=== PATIENT | male | born 1970 | race Caucasian/White ===

== ENCOUNTER 2019-09-14 09:59 | Emergency (ER) | payer OTHER ==
[~2019-09-14] VITALS: Ht 182 cm; Wt 92.0 kg
--- NOTE | 2019-09-14 10:25 | ED GU-Male ---
General Chief Complaint: Male Reproductive Stated Complaint: KNOT ON SCROTUM Nursing Triage Note: STATES HE NOTICED A KNOT ON HIS TESTICLE SACK 4-5 DAYS AGO AND NOW IS HAVING PAIN AND SWELLING Source: patient Exam Limitations: no limitations History of Present Illness Date Seen by Provider: Sep 14, 2019 Time Seen by Provider: 10:06 Initial Comments Patient presents to ER by private conveyance with chief complaint that at the posterior portion of his scrotum he had a small nodule for about for 5 days now that now include swelling, drainage and pain throughout his scrotum. He is not having any painful urination fevers chills, history of diabetes or other medical problems. Does not take any medicines nor follow with a doctor. Allergies and Home Medications Allergies Coded Allergies: No Known Drug Allergies (Unverified , 09/14/19) Home Medications Hydrocodone/Acetaminophen 1 Each Tablet, 1 TAB PO Q6H PRN for PAIN-BREAKTHROUGH Prescribed by: HUGO TAVERAS on 09/14/19 1121 Sulfamethoxazole/Trimethoprim 1 Each Tablet, 1 EACH PO BID Prescribed by: HUGO TAVERAS on 09/14/19 1121 Patient Home Medication List Home Medication List Reviewed: Yes Review of Systems Review of Systems Constitutional: No chills, No diaphoresis EENTM: No ear discharge, No ear pain Respiratory: No cough, No short of breath Cardiovascular: No chest pain, No palpitations Gastrointestinal: No abdominal pain, No nausea Genitourinary: see HPI; denies discharge, denies dysuria Musculoskeletal: No back pain, No joint pain Skin: see HPI All Other Systemes Reviewed Negative Unless Noted: Yes Past Efjmvde-Fbjbbg-Yrnuhm Hx Patient Social History Alcohol Use: Denies Use Recreational Drug Use: No Smoking Status: Never a Smoker Recent Foreign Travel: No Contact w/Someone Who Travel: No Recent Infectious Disease Expo: No Physical Exam Vital Signs Vital Signs - First Documented 09/14/19 10:00 Temp 36.6 Pulse 106 Resp 16 B/P (MAP) 155/100 (118) Pulse Ox 95 O2 Delivery Room Air Capillary Refill : Less Than 3 Seconds Height, Weight, BMI Height: '" Weight: lbs. oz. kg; 27.00 BMI Method: General Appearance: WD/WN, no apparent distress HEENT: PERRL/EOMI, pharynx normal Neck: full range of motion, normal inspection Cardiovascular: normal peripheral pulses, regular rate, rhythm Respiratory: no respiratory distress, no accessory muscle use Gastrointestinal: non tender, soft Genital/Rectal: other (the pain is nontender with no discharge or ulcers. Scrotum is edematous, erythematous, warm, tender of the posterior raphe and the perineum. There is a indurated, pointed area with a small amount of purulent discharge approximately 3 x 5 cm.) Neurologic/Psychiatric: alert, normal mood/affect, oriented x 3 Skin: other (cellulitic scrotum with firm, indurated, fluctuant area consistent with an abscess in the perineum and posterior raphe of the scrotum.) Procedures/Interventions I&D : Site: posterior scrotal/perineum Blade Size: 11 I & D Procedure: betadine prep (chlorhexidine and sterile saline), Wound Packing (quarter inch iodoform gauze) Progress Patient's skin was cleaned thoroughly using chlorhexidine and sterile saline followed by being doused in Betadine. 2 cc of 1% lidocaine without epinephrine were used to anesthetize the skin. A cross delgadillo incision was made using the 11 blade scalpel approximately 1 cm x 1 cm and were trimmed off. The wound culture probe was inserted and removed. The sterile cotton Applicator was used to break up any loculations and using direct pressure we expressed approximately 10 cc of purulent material. We then packed about 10 cm of iodoform gauze. Patient tolerated procedure well. Progress/Results/Core Measures Suspected Sepsis Recent Fever Within 48 Hours: No Infection Criteria Present: Suspected New Infection New/Unexplained Altered Menta: No Sepsis Screen: No Definite Risk SIRS Temperature: Pulse: 106 Respiratory Rate: 16 Laboratory Tests 09/14/19 10:40: White Blood Count 10.3 Blood Pressure 155 /100 Mean: 118 Laboratory Tests 09/14/19 10:40: Creatinine 0.95, Platelet Count 181, Total Bilirubin 1.1H Results/Orders Lab Results Laboratory Tests Test 09/14/19 10:40 Range/Units White Blood Count 10.3 4.3-11.0 10^3/uL Red Blood Count 4.79 4.35-5.85 10^6/uL Hemoglobin 15.1 13.3-17.7 G/DL Hematocrit 42 40-54 % Mean Corpuscular Volume 89 80-99 FL Mean Corpuscular Hemoglobin 32 25-34 PG Mean Corpuscular Hemoglobin Concent 36 32-36 G/DL Red Cell Distribution Width 13.2 10.0-14.5 % Platelet Count 181 130-400 10^3/uL Mean Platelet Volume 10.6 H 7.4-10.4 FL Neutrophils (%) (Auto) 78 H 42-75 % Lymphocytes (%) (Auto) 10 L 12-44 % Monocytes (%) (Auto) 9 0-12 % Eosinophils (%) (Auto) 2 0-10 % Basophils (%) (Auto) 0 0-10 % Neutrophils # (Auto) 8.1 H 1.8-7.8 X 10^3 Lymphocytes # (Auto) 1.0 1.0-4.0 X 10^3 Monocytes # (Auto) 1.0 0.0-1.0 X 10^3 Eosinophils # (Auto) 0.2 0.0-0.3 10^3/uL Basophils # (Auto) 0.0 0.0-0.1 10^3/uL Sodium Level 139 135-145 MMOL/L Potassium Level 3.4 L 3.6-5.0 MMOL/L Chloride Level 103 98-107 MMOL/L Carbon Dioxide Level 26 21-32 MMOL/L Anion Gap 10 5-14 MMOL/L Blood Urea Nitrogen 8 7-18 MG/DL Creatinine 0.95 0.60-1.30 MG/DL Estimat Glomerular Filtration Rate > 60 BUN/Creatinine Ratio 8 Glucose Level 142 H 70-105 MG/DL Calcium Level 8.6 8.5-10.1 MG/DL Corrected Calcium 8.5 8.5-10.1 MG/DL Total Bilirubin 1.1 H 0.1-1.0 MG/DL Aspartate Amino Transf (AST/SGOT) 15 5-34 U/L Alanine Aminotransferase (ALT/SGPT) 17 0-55 U/L Alkaline Phosphatase 88 40-136 U/L Total Protein 6.9 6.4-8.2 GM/DL Albumin 4.1 3.2-4.5 GM/DL My Orders Orders - HUGO TAVERAS Cbc With Automated Diff (09/14/19 10:30) Comprehensive Metabolic Panel (09/14/19 10:30) Blood Culture (09/14/19 10:30) Urinalysis (09/14/19 10:30) Urine Culture (09/14/19 10:30) Ed Iv/Invasive Line Start (09/14/19 10:30) Ns Iv 1000 Ml (Sodium Chloride 0.9%) (09/14/19 10:30) Ceftriaxone For Iv Use (Rocephin For I (09/14/19 10:30) Wound Culture (09/14/19 10:30) Ketorolac Injection (Toradol Injection) (09/14/19 10:45) Lidocaine 1% Inj 20 Ml (Xylocaine 1% Inj (09/14/19 10:45) Medications Given in ED Current Medications Medications Dose Ordered Sig/Gato Route Start Time Stop Time Status Last Admin Dose Admin Ceftriaxone Sodium 1000 mg/ Sterile Water 10 ml @ 200 mls/hr ONCE ONCE IV 09/14/19 10:30 09/14/19 10:35 DC 09/14/19 11:12 200 MLS/HR Ketorolac Tromethamine 30 mg ONCE ONCE IVP 09/14/19 10:45 09/14/19 10:46 DC 09/14/19 10:49 30 MG Lidocaine HCl 20 ml ONCE ONCE INJ 09/14/19 10:45 09/14/19 10:46 DC 09/14/19 10:49 20 ML Vital Signs/I&O 09/14/19 10:00 Temp 36.6 Pulse 106 Resp 16 B/P (MAP) 155/100 (118) Pulse Ox 95 O2 Delivery Room Air Capillary Refill : Less Than 3 Seconds Blood Pressure Mean: 118 Progress Note : Time: 11:17 Progress Note Because of his tachycardia and extensiveness of the cellulitis involving a s crotum we elected to get some labs including blood culture, wound culture, urinalysis and urine culture. At this time the patient's white count is 10,000 with a left shift but he does not meet sepsis criteria. Her plan would be then to after draining the wound and packing it give him a shot of Rocephin and put him on Bactrim outpatient and have him follow-up sometime tomorrow afternoon or Saturday morning to have the wound repacked and a second dose of Rocephin if necessary. Patient is in agreement with this plan. Toradol for pain. Departure Impression Primary Impression: Scrotal wall abscess Additional Impression: Cellulitis of scrotum Disposition: HOME, SELF-CARE Condition: Stable Departure-Patient Inst. Decision time for Depature: 11:18 Patient Instructions: Skin Abscess, Cellulitis (Skin Infection), Adult (DC) Add. Discharge Instructions: Keep the wound clean and dry regular soap and water. Be careful not to dislodge the packing however if you do it does not need to be replaced immediately. banquet set up person the Bactrim and take one tablet twice a day for the next 7 days. Plan to return to the ER 09/15/19 in the afternoon or morning of 09/16/19 for wound reevaluation, repeat packing and potential a second dose of parenteral antibiotics. If you have pain uncontrolled by Tylenol and ibuprofen as well as warm com presses then you may take one tablet of hydrocodone every 6 hours as needed. Hydrocodone will cause constipation and should be taken with MiraLAX or some other stool softener/laxative. Stay active around the house but no working in a dirty environment for the rest of the week. All discharge instructions reviewed with patient and/or family. Voiced understanding. Scripts Hydrocodone/Acetaminophen (Hydrocodone/Acetaminophen 5 MG/325 MG TAB) 1 Each Tablet 1 TAB PO Q6H PRN for PAIN-BREAKTHROUGH MDD 10 TABS, #14 TAB 0 Refills Prov: HUGO TAVERAS 09/14/19 Sulfamethoxazole/Trimethoprim (Bactrim Ds Tablet) 1 Each Tablet 1 EACH PO BID for 7 Days, #14 TAB 0 Refills Prov: HUGO TAVERAS 09/14/19 Work/School Note: Work Release Form Date Seen in the Emergency Department: Sep 14, 2019 Return to Work: Sep 21, 2019 Restrictions: No Restrictions HUGO TAVERAS Sep 14, 2019 10:25
[2019-09-14] MEDS ORDERED: NS IV 1000 ML 1,000 ML IV SCH (10:30)
[2019-09-14] MEDS ORDERED: cefTRIAXone FOR IV USE 1,000 MG in WATER (STERILE) FOR INJECTION 10 ML IV ONE (10:30)
[2019-09-14] MEDS ORDERED: LIDOCAINE 1% INJ 20 ML 20 ML VIAL INJ ONE (10:45)
[2019-09-14] MEDS ORDERED: KETOROLAC 30 MG/ML VIAL IVP ONE (10:45)
[2019-09-14 10:51] LABS: BASOPHILS % (AUTO) 0 % (0-10); EOSINOPHILS # (AUTO) 0.2 10^3/uL (0.0-0.3); EOSINOPHILS % (AUTO) 2 % (0-10); HEMATOCRIT 42 % (40-54); HEMOGLOBIN 15.1 G/DL (13.3-17.7); LYMPHOCYTES % (AUTO) 10 % (12-44); MEAN CORPUSCULAR HEMOGLOBIN 32 PG (25-34); MEAN CORPUSCULAR HGB CONC 36 G/DL (32-36); MEAN CORPUSCULAR VOLUME 89 FL (80-99); MEAN PLATELET VOLUME 10.6 FL (7.4-10.4); MONOCYTES % (AUTO) 9 % (0-12); NEUTROPHILS # (AUTO) 8.1 X 10^3 (1.8-7.8); NEUTROPHILS % (AUTO) 78 % (42-75); PLATELET COUNT 181 10^3/uL (130-400); RED CELL DISTRIBUTION WIDTH 13.2 % (10.0-14.5); WHITE BLOOD COUNT 10.3 10^3/uL (4.3-11.0)
--- NOTE | 2019-09-14 10:53 | NUR ---
LAB IN ROOM DRAWING AT THIS TIME.
--- OUTSIDE RECORDS SUMMARY | 2019-09-14 11:06 | XMS REPORT | Continuity of Care Document ---
Author Organization Unknown Address Unknown Phone Unavailable Allergies There is no data. Medications There is no data. Problems There is no data. Procedures There is no data. Results There is no data. Encounters ACCT No. Visit Date/Time Discharge Status Pt. Type Provider Facility Loc./Unit Complaint [id number] 01/05/2019 10:00:00 01/05/2019 23:59:5 9 CLS Outpatient VANITA PUCKETT [facility]
[2019-09-14 11:18] LABS: ALANINE AMINOTRANSFERASE 17 U/L (0-55); ALBUMIN 4.1 GM/DL (3.2-4.5); ALKALINE PHOSPHATASE 88 U/L (40-136); BILIRUBIN,TOTAL 1.1 MG/DL (0.1-1.0); BUN/CREATININE RATIO 8; CALCIUM 8.6 MG/DL (8.5-10.1); CARBON DIOXIDE 26 MMOL/L (21-32); CHLORIDE 103 MMOL/L (98-107); CREATININE SERUM 0.95 MG/DL (0.60-1.30); GFR ESTIMATED > 60; GLUCOSE 142 MG/DL (70-105); POTASSIUM 3.4 MMOL/L (3.6-5.0); SODIUM 139 MMOL/L (135-145); TOTAL PROTEIN 6.9 GM/DL (6.4-8.2)
[2019-09-14] MEDS ORDERED: SULF1TAB35 PO (11:21)
[2019-09-14] MEDS ORDERED: HYDR-4226 PO (11:21)
[2019-09-14 11:36] VITALS: BP 136/99
== END 2019-09-14 11:36 | disposition home or self-care (01) ==
LOC: EDUNIT# 09:59 → ER 10:01
DX: N49.2 Inflammatory disorders of scrotum (principal)
CPT/HCPCS: 10061; 36415; 80053; 85025; 87040; 87070; 87077; 87186; 87205

== ENCOUNTER 2019-12-10 19:30 | Emergency (ER) | payer OTHER ==
[~2019-12-10] VITALS: Ht 183 cm; Wt 90.9 kg
[~2019-12-10 19:30] MED LIST: HYDR-4226 PO; SULF1TAB35 PO
[2019-12-10] MEDS ORDERED: TETANUS,DIPTH,PERTUSS P/F (BOOSTRIX) 0.5 ML VIAL IM ONE (20:15)
[2019-12-10] MEDS ORDERED: LIDOCAINE 1% INJ 20 ML 20 ML VIAL INJ ONE (20:15)
--- NOTE | 2019-12-10 20:17 | Diagnostic Imaging Report ---
INDICATION: Laceration to the left thumb 3 views of the left thumb shows no fracture, dislocation or other acute bony abnormality. There is soft tissue injury near the interphalangeal joint with no foreign body seen. IMPRESSION: Soft tissue injury. No bony abnormality or foreign body is seen. Dictated by: Dictated on workstation # [id number]
[2019-12-10] MEDS ORDERED: RX-TRIMETH/SULFA. 160-800 MG (BACTRIM DS) TAB PPK#2 PO STA (20:24)
[2019-12-10] MEDS ORDERED: SULF1TAB35 PO (20:24)
--- NOTE | 2019-12-10 20:24 | ED Upper Extremity ---
General Chief Complaint: Laceration Stated Complaint: LACERATION AT WORK Nursing Triage Note: laceration to left thumb while moving boxes at work. Nursing Sepsis Screen: No Definite Risk Source: patient History of Present Illness Date Seen by Provider: Dec 10, 2019 Time Seen by Provider: 20:00 Initial Comments PT ARRIVES VIA POV FROM WORK AT [employer] PT STATES HE WAS MOVING BOXES AND HIS FINGER GOT CAUGHT ON A METAL POLE, BENT HIS LEFT THUMB BACK AND CUT HIS THUMB. OCCURRED AT 1900 TONIGHT NO PARESTHESIAS OR MOTOR DEFICITS NO PRIOR INJURY TO THIS THUMB NO OTHER INJURIES FROM THE INCIDENT PT IS RIGHT HANDED LAST TETANUS IS UNKNOWN. PCP: NONE Allergies and Home Medications Allergies Coded Allergies: No Known Drug Allergies (Unverified , 09/14/19) Home Medications Sulfamethoxazole/Trimethoprim 1 Each Tablet, 1 EACH PO BID Prescribed by: LUCILLE RUDD on 12/10/192023 Patient Home Medication List Home Medication List Reviewed: Yes Review of Systems Constitutional: no symptoms reported Musculoskeletal: see HPI Skin: see HPI Psychiatric/Neurological: No Symptoms Reported Past Idsksdr-Pfmvqy-Idotmd Hx Past Med/Social Hx: Reviewed and Corrections made Patient Social History Alcohol Use: Denies Use Recreational Drug Use: No Smoking Status: Never a Smoker 2nd Hand Smoke Exposure: No Recent Foreign Travel: No Contact w/Someone Who Travel: No Recent Infectious Disease Expo: No Recent Hopitalizations: No Physical Abuse: No Sexual Abuse: No Mistreated: No Fear: No Immunizations Up To Date Tetanus Booster (TDap): Unknown Seasonal Allergies Seasonal Allergies: No Past Medical History Surgeries: Yes (ABSCESS IN GENTIAL AREA I&D'D) Respiratory: No Cardiac: No Neurological: No Genitourinary: No Gastrointestinal: No Musculoskeletal: No Endocrine: No HEENT: No Cancer: No Psychosocial: No Integumentary: Yes (ABSCESS GENITAL AREA) Blood Disorders: No Physical Exam Vital Signs Vital Signs - First Documented 12/10/19 19:47 Temp 36.6 Pulse 103 Resp 18 B/P (MAP) 140/102 (115) Pulse Ox 96 O2 Delivery Room Air Capillary Refill : Less Than 3 Seconds Height, Weight, BMI Height: '" Weight: lbs. oz. kg; 27.00 BMI Method: General Appearance: WD/WN, no apparent distress Hand: Left (LEFT THUMB WITH 4 CM C-SHAPED FLAP LACERATION. PROXIMAL MEDIAL ASPECT OF THUMB. MOTOR/SENSORY/VASCULAR INTACT. ) Procedures/Interventions Other Wound Location LEFT THUMB Wound Length (cm): 4 Wound's Depth, Shape: flap Wound Explored: clean Betadine Prep?: No (BETASEPT) Anesthesia: 1% Lidocaine Suture: Ethlion Suture Size: 4-0 Number of Sutures: 5 Layer Closure?: 1 Sterile Dressing Applied?: Yes (AND THUMB SPICA SPLINT) Splinting and Joint Reduction : Splints: Thumb/Wrist Spica Progress/Results/Core Measures Results/Orders My Orders Orders - LUCILLE RUDD DO Dipht,Pertuss(Acell),Tet Adult (Boostrix (12/10/19 20:15) Finger(S) (12/10/19 20:04) Lidocaine 1% Inj 20 Ml (Xylocaine 1% Inj (12/10/19 20:15) Wound Dressing-Ed (12/10/19 20:21) Thumb Spika (12/10/19 20:21) Rx-Trimeth/Sulfameth Ds Tab (Rx-Bactrim/ (12/10/19 20:24) Medications Given in ED Current Medications Medications Dose Ordered Sig/Gato Route Start Time Stop Time Status Last Admin Dose Admin Diphtheria/ Tetanus/Acell Pertussis 0.5 ml ONCE ONCE IM 12/10/19 20:15 12/10/19 20:16 DC 12/10/19 20:18 0.5 ML Lidocaine HCl 20 ml ONCE ONCE INJ 12/10/19 20:15 12/10/19 20:16 DC 12/10/19 20:18 20 ML Vital Signs/I&O 12/10/19 12/10/19 19:47 21:00 Temp 36.6 36.5 Pulse 103 87 Resp 18 18 B/P (MAP) 140/102 (115) 136/95 (115) Pulse Ox 96 99 O2 Delivery Room Air Blood Pressure Mean: 115 Diagnostic Imaging Comments XRAYS LEFT THUMB--SOFT TISSUE INJURY, NO BONY ABNORMALITY, PER RADIOLOGIST REPORT AT 2019 Reviewed: Reviewed by Me Departure Impression Primary Impression: Laceration of left thumb Additional Impression: Bsbvqzpfkm-vjlsguosv-giyuqfb (DPT) vaccination administered at current visit Disposition: 01 HOME, SELF-CARE Condition: Stable Departure-Patient Inst. Referrals: NO,LOCAL PHYSICIAN (PCP/Family) Primary Care Physician Patient Instructions: Diphtheria and Tetanus Toxoids, and Acellular Pertussis Vaccine, Laceration Repair With Stitches (DC), SPLINT CARE Add. Discharge Instructions: LEAVE DRESSING IN PLACE FOR 24 HOURS, THEN BEGIN CLEANING TWICE A DAY WITH ANTIBACTERIAL SOAP AND WATER ON A Q-TIP, THEN APPLY FRESH DRESSING. OTHERWISE KEEP CLEAN AND DRY WEAR SPLINT AT ALL TIMES TYLENOL AND MOTRIN NEEDED FOR PAIN FOLLOW UP WITH [facility] TOMORROW FOR FURTHER CARE SUTURES OUT IN 10 DAYS NO WORK UNTIL CLEARED BY [facility] All discharge instructions reviewed with patient and/or family. Voiced u nderstanding. Scripts Sulfamethoxazole/Trimethoprim (Bactrim Ds Tablet) 1 Each Tablet 1 EACH PO BID, #20 TAB Prov: LUCILLE RUDD DO 12/10/19 LUCILLE RUDD DO Dec 10, 2019 20:24
[2019-12-10 21:00] VITALS: BP 136/95
--- OUTSIDE RECORDS SUMMARY | 2019-12-10 23:10 | XMS REPORT | Continuity of Care Document ---
Author Organization Unknown Address Unknown Phone Unavailable Allergies Active Description Code Type Severity Reaction Onset Reported/Identified Relationship to Patient Clinical Status Yes No Known Drug Allergies [id number] Drug Allergy Unknown N/A 09/14/2019 Medications There is no data. Problems Date Dx Coded Attending Type Code Diagnosis Diagnosed By 09/14/2019 DARCY SPANN, HUGO Veras Ot N45. 4 ABSCESS OF EPIDIDYMIS OR TESTIS 09/14/2019 DARCY SPANN, HUGO Veras Ot N49. 2 INFLAMMATORY DISORDERS OF SCROTUM 09/16/2019 HUGO TAVERAS MD Ot N45. 4 ABSCESS OF EPIDIDYMIS OR TESTIS 09/16/2019 HUGO TAVERAS MD Ot N49. 2 INFLAMMATORY DISORDERS OF SCROTUM Procedures There is no data. Results Test Result Range Bacterial blood culture - 09/14/19 10:40 Bacterial blood culture NG NRG Bacterial blood culture - 09/14/19 10:53 Bacterial blood culture NG NRG Gram stain microscopy - 09/14/19 10:59 Gram stain microscopy Few gram positive cocci in c lusters NRG Bacteria identification in wound by cult ure - 09/14/19 10:59 Bacteria identification in wound by culture [id number] NRG QUANTITY OF GROWTH Moderate Growth NRG FREE TEXT ENTRY 2 RML CONFIRMED MRSA 09/15 08:20 NRG SUSCEPTIBILITY SUSCEPTIBILITY REPORTED 09/15 09:25 NRG MRSA SCREEN PRESUMPTIVE MRSA; SCREEN AT [facility] 09/14 NRG RAPID ID PRELIM RAPID ID TEST AT [facility] 09/14 07:40 NRG Dirithromycin susceptibility test by dis k diffusion - 09/14/19 10:59 Oxacillin susceptibility test by minimum inhibitory co ncentration > NRG Clindamycin susceptibility test by minimum inhibitory concentration <= NRG Erythromycin susceptibility test by minimum inhibitory concentration <= NRG Trimethoprim/sulfamethoxazole susceptibi lity test by minimum inhibitoryconcentration <= NRG Vancomycin susceptibility test by minimum inhibitory c oncentration 1 NRG Levofloxacin susceptibility test by minimum inhibitory concentration > NRG Rifampin susceptibility test by minimum inhibitory con centration <= NRG Cefazolin susceptibility test by minimum inhibitory co ncentration > NRG Linezolid susceptibility test by minimum inhibitory co ncentration 2 NRG Penicillin G susceptibility test by minimum inhibitory concentration > NRG Moxifloxacin susceptibility test by minimum inhibitory concentration 2 NRG Minocycline susc RIA <= NRG Encounters ACCT No. Visit Date/Time Discharge Status Pt. Type Provider Facility Loc./Unit Complaint [id number] 01/05/2019 10:00:00 01/05/2019 23:59:5 9 [facility] [id number] 09/14/2019 10:01:00 020 11:36:00 DIS Emergency DARCY SPANN, HUGO [facility] ER KNOT ON SCROTUM
== END 2019-12-10 20:59 | disposition home or self-care (01) ==
LOC: EDUNIT# 19:30 → ER 19:31
DX: S61.012A Laceration without foreign body of left thumb without damage to nail, initial encounter (principal); Z23 Encounter for immunization; W23.1XXA Caught, crushed, jammed, or pinched between stationary objects, initial encounter; Y92.59 Other trade areas as the place of occurrence of the external cause; Y99.0 Civilian activity done for income or pay
CPT/HCPCS: 12002; 73140; 90715

== ENCOUNTER 2019-12-21 11:47 | Emergency (ER) | payer OTHER ==
[~2019-12-21] VITALS: Ht 172.2 cm; Wt 90.9 kg
[2019-12-21 12:04] VITALS: BP 140/100
--- NOTE | 2019-12-21 12:04 | NUR ---
SUTURE REMOVED WITHOUT PROBLEM X6 SUTURES REMOVED.
--- OUTSIDE RECORDS SUMMARY | 2019-12-21 12:49 | XMS REPORT | Continuity of Care Document ---
Author Organization Unknown Address Unknown Phone Unavailable Allergies Active Description Code Type Severity Reaction Onset Reported/Identified Relationship to Patient Clinical Status Yes No Known Drug Allergies [id number] Drug Allergy Unknown N/A 09/14/2019 Medications There is no data. Problems Date Dx Coded Attending Type Code Diagnosis Diagnosed By 09/14/2019 HUGO TAVERAS MD Ot N45. 4 ABSCESS OF EPIDIDYMIS OR TESTIS 09/14/2019 HUGO TAVERAS MD Ot N49. 2 INFLAMMATORY DISORDERS OF SCROTUM 09/16/2019 HUGO TAVERAS MD Ot N45. 4 ABSCESS OF EPIDIDYMIS OR TESTIS 09/16/2019 HUGO TAVERAS MD Ot N49. 2 INFLAMMATORY DISORDERS OF SCROTUM 12/14/2019 TOBIN DO, LUCILLE K Ot M79.645 PAIN IN LEFT FINGER(S) 12/14/2019 TOBIN DO, LUCILLE K Ot S61.012 A LACERATION W/O FB OF LEFT THUMB W/O LARISSA 12/14/2019 TOBIN DO LUCILLE K Ot W23.1XX A CAUGHT, CRUSH, JAMMED, OR PINCHED BETW S 12/14/2019 TOBIN DO, LUCILLE K Ot Y92.[address] 12/14/2019 TOBIN DO, LUCILLE K Ot Y99.0 CIVILIAN ACTIVITY DONE FOR INCOME OR PAY 12/14/2019 TOBIN DO LUCILLE K Ot Z23 ENCOUNTER FOR IMMUNIZATION Procedures There is no data. Results Test [...] 10:59 Bacteria identification in wound by culture [id number] NRG QUANTITY OF GROWTH Moderate Growth NRG FREE TEXT ENTRY 2 RML CONFIRMED MRSA 09/15 08:20 NRG SUSCEPTIBILITY SUSCEPTIBILITY REPORTED 09/15 09:25 NRG MRSA SCREEN PRESUMPTIVE MRSA; SCREEN AT [facility] 09/14 NRG RAPID ID PRELIM RAPID ID TEST AT [facility] 09/14 07:40 NRG Dirithromycin susceptibility test by [...] Status Pt. Type Provider Facility Loc./Unit Complaint [id number] 01/05/2019 10:00:00 01/05/2019 23:59:5 9 CLS Outpatient VANITA PUCKETT [facility] [id number] 12/10/2019 19:31:00 20:59:00 DIS Outpatient LUCILLE RUDD DO [facility] ER LACERATION AT WORK [id number] 09/14/2019 10:01:00 11:36:00 DIS Emergency DARCY SPANN, HUGO [facility] ER KNOT ON SCROTUM
== END 2019-12-21 12:04 | disposition home or self-care (01) ==
LOC: EDUNIT# 11:47 → ER 11:48
DX: S61.012D Laceration without foreign body of left thumb without damage to nail, subsequent encounter (principal); X58.XXXD Exposure to other specified factors, subsequent encounter

== ENCOUNTER 2021-01-09 15:42 | Emergency (ER) | payer OTHER ==
[~2021-01-09] VITALS: Ht 182.8 cm; Wt 90.9 kg
[~2021-01-09 15:42] MED LIST changes: -SULF1TAB35 PO; +SULF1TAB38 PO
[2021-01-09 16:18] VITALS: BP 138/104
--- NOTE | 2021-01-09 16:34 | ED Lower Extremity ---
General Chief Complaint: Lower Extremity Stated Complaint: L LEG SWELLING Source: patient Exam Limitations: no limitations History of Present Illness Date Seen by Provider: Jan 09, 2021 Time Seen by Provider: 16:33 Initial Comments To ER with left lower extremity swelling. He has some pain behind the left knee. No history of DVT. No injury. No fevers or chills. Onset: yesterday Severity: moderate Pain/Injury Location: left ankle Method of Injury: unknown Modifying Factors: Improves With Movement Allergies and Home Medications Allergies Coded Allergies: No Known Drug Allergies (Unverified , 09/14/19) Home Medications Hydrocodone/Acetaminophen 1 Each Tablet, 1 TAB PO Q4H PRN for PAIN-MODERATE (5- 7) Prescribed by: LELAND MCKEON on 01/09/211713 Prednisone 20 Mg Tab, 40 MG PO DAILY Prescribed by: LELAND MCKEON on 01/09/211712 Sulfamethoxazole/Trimethoprim 1 Each Tablet, 1 EACH PO BID Prescribed by: LUCILLE RUDD on 12/10/192023 Patient Home Medication List Home Medication List Reviewed: Yes Review of Systems Constitutional: see HPI EENTM: see HPI Respiratory: no symptoms reported Cardiovascular: no symptoms reported Genitourinary: no symptoms reported Musculoskeletal: see HPI Skin: no symptoms reported Psychiatric/Neurological: No Symptoms Reported Past Mdfyeir-Tdzdbi-Neuwjm Hx Patient Social History Tobacco Use?: No Use of E-Cig and/or Vaping dev: No Substance use?: No Alcohol Use?: No Pt feels they are or have been: No Immunizations Up To Date Tetanus Booster (TDap): Unknown Influenza Vaccine Up-to-Date: No; Not Current Seasonal Allergies Seasonal Allergies: No Past Medical History Surgeries: Yes (ABSCESS IN GENTIAL AREA I&D'D) Respiratory: No Cardiac: No Neurological: No Genitourinary: No Gastrointestinal: No Musculoskeletal: No Endocrine: No HEENT: No Cancer: No Psychosocial: No Integumentary: Yes (ABSCESS GENITAL AREA) Blood Disorders: No Physical Exam Vital Signs Vital Signs - First Documented 01/09/21 16:18 Temp 36.4 Pulse 98 Resp 18 B/P (MAP) 138/104 (115) Pulse Ox 97 O2 Delivery Room Air Capillary Refill : Height, Weight, BMI Height: '" Weight: lbs. oz. kg; 27.00 BMI Method: General Appearance: WD/WN, no apparent distress HEENT: PERRL/EOMI, normal ENT inspection Respiratory: no respiratory distress, no accessory muscle use Hips: bilateral hip non-tender, bilateral hip normal inspection, bilateral hip normal range of motion Legs: left leg other (Some trace pitting edema left lower extremity. No fevers or chills.) Knees: bilateral knee non-tender, bilateral knee normal inspection, bilateral knee normal range of motion Ankles: bilateral ankle non-tender, bilateral ankle normal inspection, b ilateral ankle normal range of motion Feet: bilateral foot non-tender, bilateral foot normal inspection, bilateral foot normal range of motion Neurologic/Psychiatric: alert, normal mood/affect, oriented x 3 Skin: normal color, warm/dry Procedures/Interventions Suture Size: 4-0 Progress/Results/Core Measures Results/Orders Lab Results Laboratory Tests Test 01/09/21 16:42 Range/Units White Blood Count 6.3 4.3-11.0 10^3/uL Red Blood Count 5.14 4.30-5.52 10^6/uL Hemoglobin 16.0 13.3-17.7 g/dL Hematocrit 45 40-54 % Mean Corpuscular Volume 88 80-99 fL Mean Corpuscular Hemoglobin 31 25-34 pg Mean Corpuscular Hemoglobin Concent 35 32-36 g/dL Red Cell Distribution Width 12.8 10.0-14.5 % Platelet Count 201 130-400 10^3/uL Mean Platelet Volume 10.4 9.0-12.2 fL Immature Granulocyte % (Auto) 0 % Neutrophils (%) (Auto) 66 42-75 % Lymphocytes (%) (Auto) 19 12-44 % Monocytes (%) (Auto) 11 0-12 % Eosinophils (%) (Auto) 3 0-10 % Basophils (%) (Auto) 1 0-10 % Neutrophils # (Auto) 4.2 1.8-7.8 X 10^3 Lymphocytes # (Auto) 1.2 1.0-4.0 X 10^3 Monocytes # (Auto) 0.7 0.0-1.0 X 10^3 Eosinophils # (Auto) 0.2 0.0-0.3 10^3/uL Basophils # (Auto) 0.1 0.0-0.1 10^3/uL Immature Granulocyte # (Auto) 0.0 0.0-0.1 10^3/uL D-Dimer 0.34 0.00-0.49 UG/ML Sodium Level 140 135-145 MMOL/L Potassium Level 4.0 3.6-5.0 MMOL/L Chloride Level 106 98-107 MMOL/L Carbon Dioxide Level 24 21-32 MMOL/L Anion Gap 10 5-14 MMOL/L Blood Urea Nitrogen 9 7-18 MG/DL Creatinine 0.92 0.60-1.30 MG/DL Estimat Glomerular Filtration Rate > 60 BUN/Creatinine Ratio 10 Glucose Level 97 70-105 MG/DL Calcium Level 8.7 8.5-10.1 MG/DL My Orders Orders - LELAND MCKEON APRN Cbc With Automated Diff (01/09/21 16:32) Basic Metabolic Panel (01/09/21 16:32) Fibrin Degradation Products (01/09/21 16:32) Vital Signs/I&O 01/09/21 16:18 Temp 36.4 Pulse 98 Resp 18 B/P (MAP) 138/104 (115) Pulse Ox 97 O2 Delivery Room Air Departure Impression Primary Impression: Left leg pain Disposition: HOME, SELF-CARE Condition: Stable Departure-Patient Inst. Decision time for Depature: 17:12 Referrals: NO,LOCAL PHYSICIAN (PCP/Family) Primary Care Physician Patient Instructions: NO INSTRUCTIONS GIVEN Add. Discharge Instructions: 1. REturn to ER for any concerns 2. Steroids and pain medication as directed 3. Follow up with your doctor this week for recheck All discharge instructions reviewed with patient and/or family. Voiced understanding. Scripts Hydrocodone/Acetaminophen (Hydrocodone-Acetamin 5-325 mg) 1 Each Tablet 1 TAB PO Q4H PRN for PAIN-MODERATE (5-7), #10 TAB Prov: LELAND MCKEON APRN 01/09/21 Prednisone (Prednisone) 20 Mg Tab 40 MG PO DAILY, #8 TAB 0 Refills Prov: LELAND MCKEON APRN 01/09/21 LELAND MCKEON APRN Jan 09, 2021 16:34
[2021-01-09 16:59] LABS: CHLORIDE 106 MMOL/L (98-107); SODIUM 140 MMOL/L (135-145)
[2021-01-09 17:00] LABS: CALCIUM 8.7 MG/DL (8.5-10.1); GLUCOSE 97 MG/DL (70-105)
[2021-01-09 17:02] LABS: BASOPHILS # (AUTO) 0.1 10^3/uL (0.0-0.1); BASOPHILS % (AUTO) 1 % (0-10); CARBON DIOXIDE 24 MMOL/L (21-32); EOSINOPHILS # (AUTO) 0.2 10^3/uL (0.0-0.3); EOSINOPHILS % (AUTO) 3 % (0-10); HEMATOCRIT 45 % (40-54); LYMPHOCYTES # (AUTO) 1.2 X 10^3 (1.0-4.0); LYMPHOCYTES % (AUTO) 19 % (12-44); MEAN CORPUSCULAR HEMOGLOBIN 31 pg (25-34); MEAN CORPUSCULAR HGB CONC 35 g/dL (32-36); MEAN CORPUSCULAR VOLUME 88 fL (80-99); MEAN PLATELET VOLUME 10.4 fL (9.0-12.2); MONOCYTES # (AUTO) 0.7 X 10^3 (0.0-1.0); MONOCYTES % (AUTO) 11 % (0-12); NEUTROPHILS # (AUTO) 4.2 X 10^3 (1.8-7.8); NEUTROPHILS % (AUTO) 66 % (42-75); PLATELET COUNT 201 10^3/uL (130-400); WHITE BLOOD COUNT 6.3 10^3/uL (4.3-11.0)
[2021-01-09 17:04] LABS: CREATININE SERUM 0.92 MG/DL (0.60-1.30); GFR ESTIMATED > 60
[2021-01-09 17:05] LABS: BUN/CREATININE RATIO 10
[2021-01-09] MEDS ORDERED: PRD20T PO (17:13)
[2021-01-09] MEDS ORDERED: ACHD5005 PO (17:13)
== END 2021-01-09 17:28 | disposition home or self-care (01) ==
LOC: EDUNIT# 15:42 → ER 15:44
DX: M79.605 Pain in left leg (principal)
CPT/HCPCS: 36415; 80048; 85025; 85379

== ENCOUNTER 2021-08-06 19:12 | Emergency (ER) | payer OTHER ==
[~2021-08-06] VITALS: Ht 182.9 cm; Wt 90.9 kg
[~2021-08-06 19:12] MED LIST changes: +ACHD5005 PO; +PRD20T PO
[2021-08-06] MEDS ORDERED: LACTATED RINGERS 1,000 ML IV STA ×2 (19:35→21:03)
[2021-08-06 19:43] LABS: CLARITY,URINE CLEAR; COLOR,URINE YELLOW; GLUCOSE, URINE (UA) NEGATIVE (NEGATIVE); KETONES,URINE NEGATIVE (NEGATIVE); LEUKOCYTE ESTERASE ,URINE NEGATIVE (NEGATIVE); NITRITE,URINE NEGATIVE (NEGATIVE); PROTEIN,URINE 1+ (NEGATIVE)
--- NOTE | 2021-08-06 19:45 | ED General ---
General Stated Complaint: BACK PAINS, NAUSEA Source of Information: Patient Exam Limitations: No Limitations History of Present Illness Date Seen by Provider: Aug 06, 2021 Time Seen by Provider: 19:25 Initial Comments Here with report of weak, shortness of air, nausea, mild chronic low back pain is overall not feeling well. This has been going on for the last 3 weeks. He was evaluated at the clinic and told that he had bronchitis and was treated for that. He did have Covid testing for that initially and that was negative. He is not vaccinated. He is also not vaccinated for influenza. States that he has nausea anytime he eats or drinks and has not been able to really eat or drink anything for the last several days. Denies blood in his stool. Does report mild cough intermittently throughout the last 3 weeks. Denies chest pain or abdominal pain. Timing/Duration: Changing Over Time, Getting Worse (Shortness of air), Other (3 weeks) Severity: Moderate Modifying Factors: worse with Eating Associated Systoms: Cough; No Fever/Chills; Nausea/Vomiting, Shortness of Air, Weakness Allergies and Home Medications Allergies Coded Allergies: No Known Drug Allergies (Unverified , 09/14/19) Patient Home Medication List Home Medication List Reviewed: Yes Hydrocodone/Acetaminophen (Hydrocodone-Acetamin 5-325 mg) 1 Each Tablet, 1 TAB PO Q4H PRN for PAIN-MODERATE (5-7) Prescribed by: LELAND MCKEON on 01/09/211713 Prednisone (Prednisone) 20 Mg Tab, 40 MG PO DAILY Prescribed by: LELAND MCKEON on 01/09/211712 Sulfamethoxazole/Trimethoprim (Bactrim Ds Tablet) 1 Each Tablet, 1 EACH PO BID Prescribed by: LUCILLE RUDD on 12/10/192023 Review of Systems Review of Systems Constitutional: No chills, No fever; weakness EENTM: No nose congestion, No throat pain Respiratory: cough, short of breath Cardiovascular: No chest pain Gastrointestinal: nausea; No vomiting Genitourinary: No dysuria, No pain Musculoskeletal: back pain; No muscle pain Skin: No change in color, No lesions Psychiatric/Neurological: Denies Headache; Weakness All Other Systems Reviewed Negative Unless Noted: Yes Past Zeuacmg-Tiuntd-Ewhcta Hx Patient Social History Tobacco Use?: No Substance use?: No Alcohol Use?: No Immunizations Up To Date Tetanus Booster (TDap): Unknown Seasonal Allergies Seasonal Allergies: No Past Medical History Surgeries: Yes (ABSCESS IN GENTIAL AREA I&D'D) Respiratory: No Cardiac: No Neurological: No Genitourinary: No Gastrointestinal: No Musculoskeletal: No Endocrine: No HEENT: No Cancer: No Psychosocial: No Integumentary: Yes (ABSCESS GENITAL AREA) Blood Disorders: No Family Medical History Reviewed Nursing Family Hx Hypertension Physical Exam-Suspected Sepsis Physical Exam Vital Signs Vital Signs - First Documented 08/06/21 19:25 Temp 36.8 Pulse 130 Resp 18 B/P (MAP) 142/118 (126) Pulse Ox 96 O2 Delivery Room Air Capillary Refill : Height, Weight, BMI Height: '" Weight: lbs. oz. kg; 27.00 BMI Method: General Appearance: No Apparent Distress, WD/WN HEENT: PERRL/EOMI, Pharynx Normal Neck: Non Tender, Supple Respiratory: Lungs Clear, Normal Breath Sounds Cardiovascular: No Murmur, Tachycardia Gastrointestinal: Normal Bowel Sounds, Non Tender, Soft Back: Normal Inspection, No CVA Tenderness, No Vertebral Tenderness Extremity: Normal Range of Motion, Non Tender Neurologic/Psychiatric: Alert, Oriented x3 Skin: normal color, warm/dry Focused Exam Lactate Level 08/06/21 19:45: Lactic Acid Level 1.37 Lactic Acid Level Laboratory Tests Test 08/06/21 19:45 Lactic Acid Level 1.37 MMOL/L (0.50-2.00) Procedures/Interventions Suture Size: 4-0 Progress/Results/Core Measures Suspected Sepsis SIRS Temperature: Pulse: Respiratory Rate: Laboratory Tests 08/06/21 19:45: White Blood Count 4.9 Blood Pressure / Mean: 08/06/21 19:45: Lactic Acid Level 1.37 Laboratory Tests 08/06/21 19:45: Creatinine 1.32H, INR Comment 1.1, Platelet Count 141, Total Bilirubin 1.0 Results/Orders Lab Results Laboratory Tests Test 08/06/21 19:35 08/06/21 19:45 Range/Units Urine Color YELLOW Urine Clarity CLEAR Urine pH 6.0 5-9 Urine Specific [place] >=1.030 1.016-1.022 Urine Protein 1+ H NEGATIVE Urine Glucose (UA) NEGATIVE NEGATIVE Urine Ketones NEGATIVE NEGATIVE Urine Nitrite NEGATIVE NEGATIVE Urine Bilirubin 2+ H NEGATIVE Urine Urobilinogen 1.0 < = 1.0 MG/DL Urine Leukocyte Esterase NEGATIVE NEGATIVE Urine RBC (Auto) NEGATIVE NEGATIVE Urine RBC NONE /HPF Urine WBC 2-5 /HPF Urine Crystals PRESENT H /LPF Urine Amorphous Sediment MOD ESTEVAN URATES H /LPF Urine Bacteria TRACE /HPF Urine Casts PRESENT /LPF Urine Hyaline Casts 5-10 H /LPF Urine Mucus LARGE H /LPF Urine Culture Indicated NO White Blood Count 4.9 4.3-11.0 10^3/uL Red Blood Count 5.39 4.30-5.52 10^6/uL Hemoglobin 16.6 13.3-17.7 g/dL Hematocrit 47 40-54 % Mean Corpuscular Volume 87 80-99 fL Mean Corpuscular Hemoglobin 31 25-34 pg Mean Corpuscular Hemoglobin Concent 36 32-36 g/dL Red Cell Distribution Width 11.9 10.0-14.5 % Platelet Count 141 130-400 10^3/uL Mean Platelet Volume 10.7 9.0-12.2 fL Immature Granulocyte % (Auto) 0 % Neutrophils (%) (Auto) 72 42-75 % Lymphocytes (%) (Auto) 12 12-44 % Monocytes (%) (Auto) 15 H 0-12 % Eosinophils (%) (Auto) 0 0-10 % Basophils (%) (Auto) 0 0-10 % Neutrophils # (Auto) 3.5 1.8-7.8 10^3/uL Lymphocytes # (Auto) 0.6 L 1.0-4.0 10^3/uL Monocytes # (Auto) 0.7 0.0-1.0 10^3/uL Eosinophils # (Auto) 0.0 0.0-0.3 10^3/uL Basophils # (Auto) 0.0 0.0-0.1 10^3/uL Immature Granulocyte # (Auto) 0.0 0.0-0.1 10^3/uL Prothrombin Time 14.8 H 12.2-14.7 SEC INR Comment 1.1 0.8-1.4 Activated Partial Thromboplast Time 30 24-35 SEC D-Dimer <= 0.27 0.00-0.49 UG/ML Sodium Level 136 135-145 MMOL/L Potassium Level 3.8 3.6-5.0 MMOL/L Chloride Level 105 98-107 MMOL/L Carbon Dioxide Level 19 L 21-32 MMOL/L Anion Gap 12 5-14 MMOL/L Blood Urea Nitrogen 19 H 7-18 MG/DL Creatinine 1.32 H 0.60-1.30 MG/DL Estimat Glomerular Filtration Rate 66 BUN/Creatinine Ratio 14 Glucose Level 102 70-105 MG/DL Lactic Acid Level 1.37 0.50-2.00 MMOL/L Calcium Level 8.7 8.5-10.1 MG/DL Corrected Calcium 8.5 8.5-10.1 MG/DL Total Bilirubin 1.0 0.1-1.0 MG/DL Aspartate Amino Transf (AST/SGOT) 20 5-34 U/L Alanine Aminotransferase (ALT/SGPT) 22 0-55 U/L Alkaline Phosphatase 84 40-136 U/L C-Reactive Protein High Sensitivity 0.87 H 0.00-0.50 MG/DL Total Protein 7.5 6.4-8.2 GM/DL Albumin 4.3 3.2-4.5 GM/DL Procalcitonin 0.03 <0.10 NG/ML My Orders Orders - JUAN RUIZ MD Cbc With Automated Diff (08/06/21 19:35) Comprehensive Metabolic Panel (08/06/21 19:35) Blood Culture (08/06/21 19:35) Sputum Culture (08/06/21 19:35) Urinalysis (08/06/21 19:35) Urine Culture (08/06/21 19:35) Protime With Inr (08/06/21 19:35) Partial Thromboplastin Time (08/06/21 19:35) Chest 1 View, Ap/Pa Only (08/06/21 19:35) Ed Iv/Invasive Line Start (08/06/21 19:35) Vital Signs Adult Sepsis Patie Q15M (08/06/21 19:35) Remove Rings In Anticipation O (08/06/21 19:35) Lactic Acid Analyzer (08/06/21 19:35) Lactated Ringers (Lr 1000 Ml Iv Solution (08/06/21 19:35) Hs C Reactive Protein (08/06/21 19:35) Fibrin Degradation Products (08/06/21 19:35) Procalcitonin (Pct) (08/06/21 19:35) Lactated Ringers (Lr 1000 Ml Iv Solution (08/06/21 21:00) Lactated Ringers (Lr 1000 Ml Iv Solution (08/06/21 21:03) Medications Given in ED Current Medications Medications Dose Ordered Sig/Gato Route Start Time Stop Time Status Last Admin Dose Admin Lactated Ringer's 1,000 ml @ 0 mls/hr Q0M ONCE IV 08/06/21 21:00 08/06/21 21:01 DC 08/06/21 21:19 999 MLS/HR Vital Signs/I&O 08/06/21 08/06/21 19:25 19:25 Temp 36.8 Pulse 130 Resp 18 B/P (MAP) 142/118 (126) Pulse Ox 96 O2 Delivery Room Air Room Air Capillary Refill : Progress Note : Progress Note Seen and evaluated. IV, labs, blood cultures, urine culture, chest x-ray, EKG, lactic Acid level was high indicating abnormally low tissue oxygenation. Ordered under sepsis protocol. We will initiate LR 1 L bolus. Monitor patient. 08/01/2004: We will repeat 1 L of LR bolus. He states he is actually feeling better. Labs reviewed and chest x-ray reviewed and show no significant findings. Monitor patient plan 2153: Overall better. Heart rate now 100. He states he feels better. Think he is safe for discharge at this time and patient agrees. Discharged home with return precautions. Patient verbalized understanding of instructions and agreement with plan. ECG Initial ECG Impression Date: Aug 06, 2021 Initial ECG Impression Time: 19:30 Initial ECG Rate: 123 Initial ECG Rhythm: S.Tach Comment Sinus tachycardia with left axis deviation. No evidence of ST elevation LA. No previous available for comparison. Interpreted by me. Diagnostic Imaging Diagonstic Imaging: Xray Plain Films/CT/US/NM/MRI: chest Comments [facility] [place], [place] NAME: KALIAGIGI MED REC#: [id number] PT STATUS: REG ER : 1970 PHYSICIAN: JUAN RUIZ MD ADMIT DATE: 08/06/21/ER Draft Date of Exam:08/06/21 CHEST 1 VIEW, AP/PA ONLY INDICATION: Shortness of air. EXAMINATION: Chest, 08/06/2021. FINDINGS: Single view chest. Heart is unremarkable. Pulmonary vasculature normal. There is minimal atelectasis in the peripheral aspect of the right midlung with remaining lungs and pleural spaces clear. There is no pneumothorax. No effusions. IMPRESSION: Atelectasis in the peripheral aspect of the right midlung. Dictated on workstation # [id number] Dict: 08/06/211955 Trans: 08/06/211999 [id number] Interpreted by: VIC GAO MD Electronically signed by: Reviewed: Reviewed by Me Departure Impression Primary Impression: Dehydration Additional Impression: Upper respiratory infection Qualified Codes: J06.9 - Acute upper respiratory infection, unspecified Disposition: HOME, SELF-CARE Condition: Improved Departure-Patient Inst. Decision time for Depature: 21:55 Referrals: NO,LOCAL PHYSICIAN (PCP/Family) Primary Care Physician Patient Instructions: Dehydration, Adult ED, Upper Respiratory Infection ED Add. Discharge Instructions: Clear liquid or light diet for the next 24 hours and then advance as tolerated. Drink plenty of fluids by taking small sips frequently. Get plenty of rest. Follow-up with your doctor for recheck and further evaluation and to discuss blood pressure history. Take medications as directed. Return for worse pain, fever, vomiting, weakness, breathing problems or other concerns as needed. Scripts Ondansetron (Ondansetron Odt) 4 Mg Tab.rapdis 4 MG PO Q6H PRN for NAUSEA/VOMITING, #12 TAB 0 Refills Prov: JUAN RUIZ MD 08/06/21 Work/School Note: Work Release Form Date Seen in the Emergency Department: Aug 06, 2021 Return to Work: Aug 08, 2021 Restrictions: No Restrictions JUAN RUIZ MD Aug 06, 2021 19:45
[2021-08-06 19:54] LABS: BASOPHILS % (AUTO) 0 % (0-10); EOSINOPHILS % (AUTO) 0 % (0-10); HEMATOCRIT 47 % (40-54); HEMOGLOBIN 16.6 g/dL (13.3-17.7); LYMPHOCYTES # (AUTO) 0.6 10^3/uL (1.0-4.0); LYMPHOCYTES % (AUTO) 12 % (12-44); MEAN CORPUSCULAR HEMOGLOBIN 31 pg (25-34); MEAN CORPUSCULAR HGB CONC 36 g/dL (32-36); MEAN CORPUSCULAR VOLUME 87 fL (80-99); MEAN PLATELET VOLUME 10.7 fL (9.0-12.2); MONOCYTES # (AUTO) 0.7 10^3/uL (0.0-1.0); MONOCYTES % (AUTO) 15 % (0-12); NEUTROPHILS # (AUTO) 3.5 10^3/uL (1.8-7.8); NEUTROPHILS % (AUTO) 72 % (42-75); PLATELET COUNT 141 10^3/uL (130-400); WHITE BLOOD COUNT 4.9 10^3/uL (4.3-11.0)
[2021-08-06 19:59] LABS: AMORPHOUS SEDIMENT,UR MOD AMOR URATES /LPF; BACTERIA,URINE TRACE /HPF
[2021-08-06 20:00] LABS: BILIRUBIN,URINE 2+ (NEGATIVE)
--- NOTE | 2021-08-06 20:00 | Diagnostic Imaging Report ---
INDICATION: Shortness of air. EXAMINATION: Chest, 08/06/2021. FINDINGS: Single view chest. Heart is unremarkable. Pulmonary vasculature normal. There is minimal atelectasis in the peripheral aspect of the right midlung with remaining lungs and pleural spaces clear. There is no pneumothorax. No effusions. IMPRESSION: Atelectasis in the peripheral aspect of the right midlung. Dictated by: Dictated on workstation # [id number]
[2021-08-06 20:01] LABS: ALBUMIN 4.3 GM/DL (3.2-4.5)
[2021-08-06 20:02] LABS: POTASSIUM 3.8 MMOL/L (3.6-5.0)
[2021-08-06 20:03] LABS: CALCIUM 8.7 MG/DL (8.5-10.1)
[2021-08-06 20:04] LABS: TOTAL PROTEIN 7.5 GM/DL (6.4-8.2)
[2021-08-06 20:08] LABS: CREATININE SERUM 1.32 MG/DL (0.60-1.30)
[2021-08-06 20:22] LABS: FIBRIN DEGRADATION PRODUCTS <= 0.27 UG/ML (0.00-0.49); INR 1.1 (0.8-1.4); PARTIAL THROMBOPLASTIN TIME 30 SEC (24-35); PROTHROMBIN TIME PATIENT 14.8 SEC (12.2-14.7)
[2021-08-06] MEDS ORDERED: LACTATED RINGERS 1,000 ML IV ONE (21:00)
[2021-08-06] MEDS ORDERED: ONDA4TAB11 PO (21:56)
[2021-08-06 22:12] VITALS: BP 125/90
== END 2021-08-06 22:14 | disposition home or self-care (01) ==
LOC: EDUNIT# 19:12 → ER 19:18
DX: E86.0 Dehydration (principal); J06.9 Acute upper respiratory infection, unspecified; I10 Essential (primary) hypertension
CPT/HCPCS: 36415; 71045; 80053; 81000; 83605; 84145; 85025; 85379; 85610; 85730; 86141; 87040; 87088; 93005